=== PATIENT | male | born 1950 | race Caucasian/White ===

== ENCOUNTER → 2016-05-25 | Outpatient (CLI) | payer OTHER, MEDICARE ==
[~2016-05-25] MED LIST: FLNIN NAE; LISI-461 PO; MAXAIR INH; MULTTAB58 PO; OPTIRAY 320 IV PRN; SNG10 PO; SYN100 PO; [UNRECOGNIZED DRUG - OTHER] PO
--- NOTE | 2016-05-25 12:30 | DIAGNOSTIC IMAGING REPORT ---
CT SCAN OF THE ABDOMEN AND PELVIS WITH IV CONTRAST CLINICAL HISTORY: Prostate cancer. COMPARISON STUDY: No priors. TECHNIQUE: Following the IV administration of 120 cc of Optiray 320, CT scan of the abdomen and pelvis is performed from the lung bases to the proximal femora. Images are reviewed in the axial, sagittal, and coronal planes. IV contrast was administered without complication. Automated dose control exposure was utilized. The examination is degraded by large body habitus, and streak artifact from the body wall abutting the CT gantry. CT DOSE: 1047.25 mGycm FINDINGS: Lung bases: The heart is normal in size and without pericardial effusion. The lung bases are clear. There is a small hiatal hernia. Liver: The contrast-enhanced liver is normal in size, contour, and attenuation. There is minimal central intrahepatic biliary ductal dilatation. The hepatic veins and portal veins are patent. Gallbladder: Surgically absent noting clips in the gallbladder fossa. Spleen: Normal in size and attenuation. Pancreas: Unremarkable. Adrenal glands: Unremarkable. Kidneys: The contrast enhanced kidneys demonstrate mild cortical atrophy and are without hydronephrosis. The kidneys enhance symmetrically. Abdominal vasculature: The abdominal aorta is normal in course and caliber noting mild atherosclerotic calcification. Bowel: The small bowel and colon are normal in course and caliber. There is mild sigmoid diverticulosis without CT evidence of acute diverticulitis. The appendix is well-visualized and normal. Peritoneum: There is no intraperitoneal free air or abdominal ascites. Lymphadenopathy: None. Pelvic viscera: The the prostate gland is diminutive and heterogeneous. Brachytherapy seeds are in place. The bladder and seminal vesicles are normal as visualized. Skeletal structures: The skeletal structures are osteopenic. There is mild to moderate lumbosacral spondylosis. Minimal retrolisthesis is seen at L4-L5 and L5-S1. No lytic or blastic lesions are seen. Degenerative sclerosis is noted in the sacroiliac joints and pubic symphysis. IMPRESSION: 1. There is no evidence of metastatic disease in the abdomen or pelvis. 2. Brachytherapy seeds are noted in the prostate gland. 3. Sigmoid diverticulosis without CT evidence of acute diverticulitis. 4. Additional changes as above. Electronically signed by: Dimas Peng M.D. 05/25/2016 12:29 PM Dictated Date/Time: 05/25/2016 12:24 PM
--- NOTE | 2016-05-25 15:52 | DIAGNOSTIC IMAGING REPORT ---
BONE SCAN WHOLE BODY CLINICAL HISTORY: Prostate carcinoma COMPARISON STUDY: CT scan dated 05/25/2016 FINDINGS: The patient was injected with 25.4 mCi of technetium 99m MDP. Three-hour delayed whole body images were acquired. There are multifocal areas of increased activity within both feet and both ankles right greater than left. There is also areas of increased uptake within the left knee and right shoulder. The distribution favors a degenerative/arthritic etiology. There is a focus of increased activity right cervical spine posteriorly, also likely degenerative. There are no foci of increased activity viewed as suspicious for skeletal metastasis. IMPRESSION: Multifocal areas of increased uptake in a distribution suggesting degenerative/arthritic change. There are no foci of increased activity viewed as suspicious for skeletal metastasis Electronically signed by: Russell Joe M.D. 05/25/2016 3:50 PM Dictated Date/Time: 05/25/2016 3:49 PM
== END | disposition home or self-care (01) ==
LOC: C.CTS 11:38
PROVIDERS: ATTEND Urology
DX: C61 Malignant neoplasm of prostate (principal)

== ENCOUNTER → 2017-08-05 | Outpatient (CLI) | payer OTHER, MEDICARE ==
--- NOTE | 2017-08-05 12:17 | DIAGNOSTIC IMAGING REPORT ---
ABD/PELVIS IV AND ORAL CONT CT DOSE: 1499.01 mGy.cm HISTORY: Prostate carcinoma PROSTATE CA TECHNIQUE: Multiaxial CT images of the abdomen and pelvis were performed following the use of intravenous and oral contrast. A dose lowering technique was utilized adhering to the principles of ALARA. COMPARISON STUDY: 05/25/2016 FINDINGS: The lung bases are clear. The liver, spleen, gallbladder, pancreas, kidneys, and adrenal glands are within normal limits. No bowel wall thickening or obstruction. The pelvic organs are unremarkable. No suspicious lytic or blastic osseous lesions. IMPRESSION: No significant abnormality identified within the abdomen or pelvis. Stable postoperative change. No evidence for metastatic disease. The above report was generated using voice recognition software. It may contain grammatical, syntax or spelling errors. Electronically signed by: Hudson Bowers M.D. 08/05/2017 12:16 PM Dictated Date/Time: 08/05/2017 12:14 PM
--- NOTE | 2017-08-05 16:00 | DIAGNOSTIC IMAGING REPORT ---
BONE SCAN WHOLE BODY HISTORY: Prostate carcinoma PROSTATE CA RADIOTRACER: 25.4 mCi Tc-99m MDP STUDY/IMAGES: Planar anterior and posterior whole body imaging was performed 3 hours following the intravenous administration of radiotracer. COMPARISON: 05/25/2016 FINDINGS: Unremarkable bilateral renal activity is present. There are findings of considerable degenerative change of the ankles and feet which are similar compared to the prior study. There are findings of mild degenerative change of the knee compartments bilaterally. There is no evidence for a pattern of metastatic bone disease. There are no abnormal soft tissue activity characteristics. IMPRESSION: 1. Degenerative activity primarily of the feet and ankles. 2. This study is considered negative for metastatic bone disease by bone scan criteria. The above report was generated using voice recognition software. It may contain grammatical, syntax or spelling errors. Electronically signed by: Hudson Bowers M.D. 08/05/2017 3:59 PM Dictated Date/Time: 08/05/2017 3:57 PM
== END | disposition home or self-care (01) ==
LOC: C.CTS 11:36
PROVIDERS: ATTEND Urology
DX: C61 Malignant neoplasm of prostate (principal); M19.071 Primary osteoarthritis, right ankle and foot; M19.072 Primary osteoarthritis, left ankle and foot

== ENCOUNTER 2018-09-21 05:44 | Inpatient (IN) ==
--- NOTE | 2018-09-07 11:08 | Anesthesiology Consultation ---
Date of Service September 07, 2018 Assessment & Plan (1) Encounter for pre-operative examination: Chart Review Chart Review: Acceptable Risk for Surgery and Patient NOT seen in Pre Admission Testing Consults Requested none History Surgery Operation Date: 09/21/18 14:50 Proposed Procedures p Left Total Knee Arthroplasty - Dayday Pinedo MD Height/Weight Height: 5 ft 10.5 in Weight: 122.016 kg Allergies Allergy/AdvReac Type Severity Reaction Status Date / Time Penicillins Allergy Intermediate hives Verified 08/25/18 09:39 Sulfa (Sulfonamide Allergy Intermediate hives Verified 08/25/18 09:39 Antibiotics) Medications Home Medications Medication Instructions Recorded Confirmed Last Taken aspirin [Aspir-81] 81 mg PO HS 07/01/18 08/25/18 Unknown budesonide 1 spray INTRANASAL QPM 07/01/18 08/25/18 Unknown cholecalciferol (vitamin D3) 1,000 unit PO QAM 07/01/18 08/25/18 Unknown [Vitamin D3] doxazosin 8 mg PO HS 07/01/18 08/25/18 Unknown fluticasone propionate [Flonase 2 spray INTRANASAL HS 07/01/18 08/25/18 Unknown Allergy Relief] levocetirizine [Xyzal] 2.5 mg PO HS 07/01/18 08/25/18 Unknown levothyroxine 100 mcg PO QAM 07/01/18 08/25/18 Unknown lisinopril 20 mg PO QAM 07/01/18 08/25/18 Unknown montelukast 10 mg PO QAM 07/01/18 08/25/18 Unknown oxybutynin chloride 5 mg PO BID 07/01/18 08/25/18 Unknown albuterol sulfate 1 puff INHALATION Q6H PRN 07/07/18 08/25/18 Unknown budesonide-formoterol [Symbicort] 1 puff INHALATION BID 07/07/18 08/25/18 Unknown Cholesterol Med 0.5 tab PO HS 08/25/18 08/25/18 Unknown Past Medical History Medical History Arthritis Asthma Symbicort BID, albuterol < once per day History of prostate cancer DX'D 7-8 YRS AGO s/p brachytherapy Hyperlipidemia Hypertension Obesity Sleep apnea CPAP HS Exercise / Class Metabolic Activity II 4-5 Yardwork/Stairs/Walk up hill (Denies CP or SOB with 1 FOS) Past Family History Family History Daughter No problems noted. Brother Family history of diabetes mellitus Sister Family history of diabetes mellitus Past Surgical History Surgical History History of brachytherapy 2011 History of cholecystectomy History of colonoscopy 3 YRS AGO History of sinus surgery AND NASAL POLYPS History of tonsillectomy Past Anesthesia History No Family Hx of Anesthesia Complications Volume brachytherapy 2011 [facility]: DL x 2, ETT 8.0 with 2 Bautista. Atraumatic. No issues noted per record. PT STATES HE HAD A LOT OF TROUBLE WAKING AFTER SINUS SURGERY IN , NO ISSUES WITH SUBSEQUENT SURGERIES. THIS WAS MOST REMOTE SURGERY, HAS SINCE HAD CHOLECYSTECTOMY AND BRACHYTHERAPY WITH NO ISSUES. Social History Smoking Status: Never smoker Do You Dip or Chew Tobacco: No Hx Alcohol Use: Yes Alcohol type: beer alcohol intake frequency: a few times a month Hx Substance Use: No substance use type: does not use Testing Laboratory Results 09/05/18 WBC: 6.63 H/H: 13.7/38.1 PLATELETS: 149 SODIUM: 140 POTASSIUM: 3.9 CHLORIDE: 108 CO2: 26 BUN: 16 CREATININE: 0.99 GLUCOSE: 89 PT: 10.9 PTT: 29.1 INR: 1.1 Electrocardiogram Date: 07/07/18 Findings: + NSR @ (77 with sinus arrhythmia) NS ST abnormality. Compared to EKG of 03/20/11 no significant change was found. Chest X-Ray Date: 07/07/18 Findings: + NAD
--- NOTE | 2018-09-20 16:07 | History and Physical Report ---
DATE OF ADMISSION: 09/21/2018 CHIEF COMPLAINT: Chronic left knee pain. HISTORY OF PRESENT ILLNESS: This is a 68-year-old male patient of Dr. Pinedo'shahana complaining of chronic left knee pain, longstanding, now progressively getting worse. The patient has failed conservative treatment including intraarticular injections, anti-inflammatories and home exercise program directed by his physician. The patient has increased pain with weightbearing activities and his pain does interfere with his activities of daily living. The patient has been diagnosed with end-stage osteoarthritis per clinical and radiographic exams and wishes to proceed with a left total knee arthroplasty. PAST MEDICAL HISTORY: Significant for heart murmur, asthma, chronic cough, sleep apnea with the use of CPAP, osteoarthritis, acid reflux, obesity, prostate cancer. SOCIAL HISTORY: Nonsmoker, nondrinker. PAST SURGICAL HISTORY: Sinus surgery, cholecystectomy and seed implants for his prostate cancer. FAMILY HISTORY: Noncontributory. REVIEW OF SYSTEMS: Chronic left knee pain, otherwise denies any shortness of breath, chest pain, nausea, vomiting or other joint complaints. MEDICATIONS: 1. Budesonide 0.6 mg twice daily, nasal wash. 2. Montelukast 10 mg daily. 3. Vitamin D3 daily. 4. Oxybutynin chloride 5 mg twice daily. 5. Levothyroxine 100 mcg daily. 6. Lisinopril 10 mg daily. 7. Symbicort 160 mcg 1 spray in the morning, 1 spray at night. 8. Fluticasone proprionate nasal spray 2 sprays in each nostril at night. 9. Doxazosin 4 mg daily. 10. Xyzal 5 mg 1/2 tablet at bedtime. 11. Aspirin 81 mg daily. 12. Albuterol sulfate inhaler as needed. ALLERGIES: PENICILLIN - HIVES; SULFA - HIVES. PHYSICAL EXAMINATION: GENERAL: Well-developed, well-nourished 68-year-old male in no acute distress. He is alert and oriented x3 and pleasant. HEENT: Normocephalic, atraumatic. Extraocular motions are intact. Pupils are equal and reactive to light. HEART: Regular rate and rhythm, no murmurs appreciated. LUNGS: Clear. ABDOMEN: Soft and nontender. Bowel sounds present. EXTREMITIES: Left knee range of motion limited to 0-100 degrees with a varus deformity. The patient has crepitation with passive range of motion with a mild effusion. Ligaments are stable. He has medial joint line tenderness. He has 5/5 strength with pain. NEUROLOGIC: Neurovascularly he is intact in his left lower extremity. DIAGNOSES: Left knee end-stage osteoarthritis, history of a heart murmur, hypertension, asthma, sleep apnea with the use of CPAP, osteoarthritis, acid reflux, obesity, history of prostate cancer. PLAN: The patient was advised of his diagnosis. Indications, risks, benefits, postop course have all been reviewed. The patient wished to proceed with a left total knee arthroplasty. Necessary consent forms, preoperative testing clearances will be obtained.
[2018-09-21] MEDS ORDERED: GABAPENTIN 300 MG PO SCH (06:00)
[2018-09-21] MEDS ORDERED: ROPIVACAINE 0.5% HCL/PF 150 MG, BUPIVACAINE 0.5% MPF 30 ML, EPINEPHrine 30MG/30ML (OR U... INFIL SCH (06:00)
[2018-09-21] MEDS ORDERED: METOCLOPRAMIDE HCL 10 MG TABLET PO SCH (06:00)
[2018-09-21] MEDS ORDERED: VANCOMYCIN HCL 1,750 MG in SODIUM CHLORIDE 0.9% 500 ML IV SCH ×2 (06:00→18:00)
[2018-09-21] MEDS ORDERED: VANCOMYCIN HCL 1,000 MG/270 ML BAG IV SCH (06:00)
[2018-09-21] MEDS ORDERED: dexAMETHasone 4 MG TAB PO SCH (06:00)
[2018-09-21] MEDS ORDERED: ACETAMINOPHEN 500 MG TAB PO SCH (06:00)
[2018-09-21] MEDS ORDERED: FAMOTIDINE 20 MG TAB PO SCH (06:00)
[2018-09-21] MEDS ORDERED: TRANEXAMIC ACID 1,000 MG **IV Pre-op IV SCH (06:00)
[2018-09-21] MEDS ORDERED: TRANEXAMIC ACID 1,000 MG **IV Intra-op IV SCH (06:30)
[2018-09-21] MEDS ORDERED: BUPIVACAINE 0.5 % 5 MG/1 ML PF 10ML VIAL ONE (06:32)
[2018-09-21] MEDS ORDERED: ROPIVACAINE 0.5% 5 MG/ML 30 ML VIAL ONE (06:32)
[2018-09-21] MEDS: LR 500ML BOLUS, THEN 15ML/HR IV SCH ×2 (06:37→08:09)
[2018-09-21] MEDS ORDERED: DEXAMETHASONE SOD INJ 4 MG/ML VIAL ONE (06:43)
[2018-09-21] MEDS ORDERED: LIDOCAINE HCL 2% 2 ML VIAL/AMP(20MG/ML) INFIL ONE (06:43)
[2018-09-21] MEDS ORDERED: MIDAZOLAM HCL 1 MG/ML 2ML VIAL ONE (06:43)
[2018-09-21] MEDS ORDERED: GLYCOPYRROLATE 0.2 MG/ML VIAL ONE (06:43)
[2018-09-21] MEDS ORDERED: PROPOFOL IV EMULSION 10 MG/ML 20 ML VIAL IV ONE ×3 (06:43→09:52)
[2018-09-21] MEDS ORDERED: ONDANSETRON INJ 2 MG/ML 2 ML VIAL ONE (06:43)
[2018-09-21] MEDS ORDERED: KETAMINE HCL INJ 50 MG/ML 10 ML VIAL ONE (06:44)
[2018-09-21] MEDS ORDERED: fentaNYL citrate 100 MCG/2 ML VIAL ONE (06:45)
--- NOTE | 2018-09-21 06:53 | History & Physical Bridge Note ---
Date of Service September 21, 2018 History & Physical Bridge Note I have examined the patient, reviewed the History & Physical and in the interval since the performance of the History & Physical I have noted the following changes of clinical significance: no changes noted
[2018-09-21] MEDS ORDERED: ePHEDrine sulfate 50 MG/ML AMP IV PRN (07:19)
[2018-09-21] MEDS ORDERED: fentaNYL citrate 100 MCG/2 ML VIAL IV PRN (07:19)
[2018-09-21] MEDS ORDERED: ATROPINE SULFATE 0.1 MG/ML 10ML SYR IV PRN (07:19)
[2018-09-21] MEDS ORDERED: ONDANSETRON INJ 2 MG/ML 2 ML VIAL IV PRN ×2 (07:19→11:24)
[2018-09-21] MEDS ORDERED: HYDROmorphone INJ 1 MG/ML SYRINGE IV PRN (07:19)
[2018-09-21] MEDS ORDERED: ORTHO JOINT ANESTHETIC ONE (07:22)
[2018-09-21] MEDS ORDERED: BACITRACIN INJ 50,000 UNIT VIAL ONE (07:22)
[2018-09-21] MEDS ORDERED: LABETALOL HCL IV 5 MG/ML 20ML IV ONE (09:35)
--- NOTE | 2018-09-21 10:00 | Post Operative Brief Note ---
Immediate Post Op Note v1 Date of Surgery September 21, 2018 Pre & Post Diagnosis Operation Date: 09/21/18 08:40 Pre-Op Diagnosis: Unilateral Primary Osteoarthritis, Left Knee Post-Op Diagnosis: Unilateral Primary Osteoarthritis, Left Knee Procedure Operation Date: 09/21/18 08:40 Actual Procedures p Left Total Knee Arthroplasty(Left) - Dayday Pinedo MD Surgeon Dayday Pinedo MD Manager Research Development Albert GARCIA Estimated Blood Loss 5 Findings Consistent with Post-Op Diagnosis Specimens Bone cuts Drains Hemovac Drain Anesthesia Type MAC Spinal Regional Complications none Disposition Accompanied Patient To Recovery: No Disposition: Recovery Room Overlapping Procedure I was present for: the critical portions of procedure.
[2018-09-21] MEDS ORDERED: POVIDONE-IODINE 10% OINT 30 GM TUBE EXT ONE (10:06)
--- NOTE | 2018-09-21 10:59 | XRay Report ---
XR knee LT 2V routine CLINICAL HISTORY: Surgical Post Op COMPARISON: None. DISCUSSION: There are postsurgical changes of total left knee arthroplasty and patellar resurfacing. There are overlying skin bijan and surgical drains. The femoral tibial components appear well seate d. There is air present within the soft tissues consistent with recent surgery. IMPRESSION: Postsurgical changes of a total left knee arthroplasty. Electronically signed by: Russell Joe M.D. 09/21/2018 10:58 AM
--- NOTE | 2018-09-21 11:01 | Anesthesiology Progress Note ---
Date of Service September 21, 2018 Anesthesia Post Procedure Vital Signs Vital Signs: Temp Pulse Pulse Resp BP BP Pulse Ox 09/21/18 10:50 82 20 147/77 H 93 09/21/18 10:40 86 15 144/86 H 94 09/21/18 10:32 36.1 C L 93 H 18 142/79 H 97 09/21/18 06:19 36.6 C 80 20 170/95 H 95 Pain Intensity Left Knee: Pain Intensity: 0 Transfer of Care Handoff Completed per policy Notes Mental Status: alert / awake / arousable Patient Amnestic to Procedure: Yes Nausea / Vomiting: adequately controlled Pain: adequately controlled Airway Patency, RR, SpO2: stable & adequate BP & HR: stable & adequate Hydration State: stable & adequate Neuraxial Anesthesia: was administered and sensory block is resolving Anesthetic Complications: no major complications apparent and Pt Satisfied with anesthetic care
[2018-09-21] MEDS ORDERED: VANCOMYCIN CONSULT ACTIVE PRN (11:24)
[2018-09-21] MEDS ORDERED: ALBUTEROL HFA 8 GM INHALER INH PRN (11:24)
[2018-09-21] MEDS ORDERED: NALOXONE HCL 0.4 MG/1 ML VIAL/CARP IV PRN (11:24)
[2018-09-21] MEDS ORDERED: ALUMINUM/MAGNESIUM SUSP 30 ML UDC PO PRN (11:24)
[2018-09-21] MEDS ORDERED: HYDROmorphone INJ 0.5 MG/0.5 ML SYR IV PRN (11:24)
[2018-09-21] MEDS ORDERED: BISACODYL 10 MG SUPP PR PRN (11:24)
[2018-09-21] MEDS ORDERED: MAGNESIUM HYDROXIDE SUSP 30 ML UDC PO PRN (11:24)
--- NOTE | 2018-09-21 11:51 | Hospitalist Consultation ---
Date of Consultation September 21, 2018 Assessment & Plan (1) Osteoarthritis of left knee: - POD#[address] Pinedo - activity and wound care orders as per ortho - pain control with bowel regimen - PT/OT - monitor H/H for acute blood loss anemia and transfuse blood products PRN (2) Hypertension: -BP controlled, continue lisinopril (3) Hyperlipidemia: -Continue statin (4) Asthma: -Stable, no signs of acute exacerbation -Continue home inhalers (5) Sleep apnea: -CPAP as per home settings (6) DVT prophylaxis: -Aspirin 81 mg twice daily as per orthopedics Thank you for this consultation. We will follow the patient with you during their hospital stay. You can reach a member of the [facility] 19/10 via pager @ [phone]. Supervising Physician Co-Signing Physician Notes Patient is a 68-year-old male with history of asthma, ALEYDA, hypothyroidism, hypertension, history of prostate cancer and other problems was seen and examined postop after having left TKA by Dr. Pinedo. Patient is doing well postop. Pain at the surgical site is well controlled. Denies any chest pain, shortness of breath, dizziness, nausea, abdominal pain. Physical Exam: Vitals signs as noted above General Appearance:Obese, no apparent distress Head: normocephalic, Atraumatic Eyes: normal inspection, EOMI Neck: supple, Trachea midline Respiratory/Chest: Normal breath sounds, CTA, No accessory muscle use Cardiovascular: S1, S2, No murmur Abdomen/GI:Soft, Non tender, Bowel sounds present Extremities/Musculoskelatal:normal inspection, no edema, Left knee in surgical dressing, +drain Neurologic/Psych:AAOX3, grossly no focal neurological deficits Skin: normal color, warm S/P Left TKA: Monitor for postop anemia Activity, DVT prophylaxis and pain control as per primary team Asthma: No signs of exacerbation. I personally reviewed the record. Patient is interviewed and examined at bedside. Patient's care is coordinated with Lorena Cedeño CALL TAKER. Please refer to the documentation above for details of patient's presentation and for discussion of other issues. History of Present Illness Reason for Consultation: Post Op Medical Management Requesting Physician: Dr. Pinedo Attending Physician: Dr. Santoro History of Present Illness 68 year old male who is s/p left TKA today by Dr. Pinedo. Post operatively the patient is doing well. He reports his pain is well controlled. He has some residual numbness to the lower extremities. He denies chest pain and shortness of breath. No lightheadedness or dizziness. Denies abdominal pain and nausea. He has voided since surgery. Allergies Allergy/AdvReac Type Severity Reaction Status Date / Time Penicillins Allergy Intermediate hives Verified 09/21/18 06:09 Sulfa (Sulfonamide Allergy Intermediate hives Verified 09/21/18 06:09 Antibiotics) Home Medications Home Medications Medication Instructions Recorded Confirmed Type aspirin [Aspir-81] 81 mg PO HS 07/01/18 09/21/18 History budesonide 1 spray INTRANASAL QPM 07/01/18 09/21/18 History cholecalciferol (vitamin D3) 1,000 unit PO QAM 07/01/18 09/21/18 History [Vitamin D3] doxazosin 8 mg PO HS 07/01/18 09/21/18 History fluticasone propionate [Flonase 2 spray INTRANASAL HS 07/01/18 09/21/18 History Allergy Relief] levocetirizine [Xyzal] 2.5 mg PO HS 07/01/18 09/21/18 History levothyroxine 100 mcg PO QAM 07/01/18 09/21/18 History lisinopril 20 mg PO QAM 07/01/18 09/21/18 History montelukast 10 mg PO QAM 07/01/18 09/21/18 History oxybutynin chloride 5 mg PO BID 07/01/18 09/21/18 History albuterol sulfate 1 puff INHALATION Q6H PRN 07/07/18 09/21/18 History budesonide-formoterol [Symbicort] 1 puff INHALATION BID 07/07/18 09/21/18 History rosuvastatin 10 mg PO DAILY 09/21/18 09/21/18 History Patient History Medical History Hypertension (Chronic) Asthma (Chronic) Symbicort BID, albuterol < once per day Sleep apnea (Chronic) CPAP HS History of prostate cancer (Chronic) DX'D 7-8 YRS AGO s/p brachytherapy Obesity (Chronic) Hyperlipidemia (Chronic) Arthritis (Chronic) Encounter for pre-operative examination (Chronic) Surgical History History of vasectomy (Chronic) History of brachytherapy (Chronic) 2012 History of cholecystectomy (Chronic) History of sinus surgery (Chronic) AND NASAL POLYPS History of tonsillectomy (Chronic) Family History Daughter No problems noted. Brother Family history of diabetes mellitus Sister Family history of diabetes mellitus Social History Preferred Language: [place] Communication Ability: Effective Oncology Patient Navigator Required: No Beliefs That Will Affect Care: None Current Living Situation: Spouse Other Information That Helps Us Care for You: No Feels Safe at Home: Yes Safety Concerns: Feels Safe At This Time Smoking Status: Never smoker Do You Dip or Chew Tobacco: No Second Hand Exposure: No Hx Alcohol Use: Yes Alcohol type: beer Hx Substance Use: No Review of Systems Review of Systems: ROS per HPI, all other systems reviewed and negative Physical Exam Physical Exam: Please refer to Dr. Santoro's addendum for physical exam Results & Data Vital Signs (Past 12 Hours) Vital Signs Temp Pulse Pulse Resp BP BP Pulse Ox 09/21/18 11:15 36.5 C 75 18 143/77 H 93 09/21/18 11:00 36.8 C 79 21 142/77 H 92 09/21/18 10:50 82 20 147/77 H 93 09/21/18 10:40 86 15 144/86 H 94 09/21/18 10:32 36.1 C L 93 H 18 142/79 H 97 09/21/18 06:19 36.6 C 80 20 170/95 H 95
[2018-09-21] MEDS: SODIUM CHLORIDE 0.9% 1000ML 1,000 ML IV SCH ×2 (12:24→22:04)
[2018-09-21] MEDS: ACETAMINOPHEN 500 MG TAB PO SCH ×2 (13:52→21:17)
[2018-09-21] MEDS: KETOROLAC TROMETHAMINE 15 MG/ML VIAL IV SCH ×2 (13:52→21:14)
--- NOTE | 2018-09-21 20:09 | Operative Report ---
Post Operative Report Pre & Post Diagnosis Operation Date: 09/21/18 08:40 Pre-Op Diagnosis: Unilateral Primary Osteoarthritis, Left Knee Post-Op Diagnosis: Unilateral Primary Osteoarthritis, Left Knee Procedure Operation Date: 09/21/18 08:40 Actual Procedures p Left Total Knee Arthroplasty(Left) - Dayday Pinedo MD Surgeon Dayday Pinedo MD Nursing Home Assistant Administrator Albert GARCIA Estimated Blood Loss 5 Findings Consistent with Post-Op Diagnosis Specimens Bone cuts Drains 2 Hemovac Anesthesia Type MAC Spinal Regional Complications none Disposition Accompanied Patient To Recovery: No Disposition: Recovery Room Indications 60-year-old male with chronic left knee pain progressive osteoarthritis failed conservative management. Radiographs demonstrate that he has patellofemoral medial compartment osteoarthritis of varus knee [id number] medial compartment. Description of Procedure Patient taken to the operating room the size under spinal MAC regional anesthesia. Patient was placed supine on the operating table. A pneumatic tourniquet was placed about the left upper thigh. The left lower extremity was prepped and draped in sterile fashion. Knee exam demonstrated -15 degree flexion contracture with flexion 120 degrees no instability. The leg was elevated exsanguinated with an Esmarch bandage and pneumatic tourniquet was raised to 350 millimeters of mercury. Skin incised sharply in longitudinal fashion. Subcutaneous flaps elevated. Incision was made through the medial retinaculum extending up in the mid third of the quadriceps tendon and down to the medial tibial tubercle. Intra-articular findings demonstrated tricompartmental OA with [id number] medial compartment and grade 3 close to grade 4 patella femoral OA. The [employer] triathlon total knee arthroplasty system was used. To expose the knee the infrapatellar fat pad was resected. The meniscal remnants and cruciate ligaments were resected. The anterior fat pad over the femur in the area of the anterior flange of the femoral component was resected. Lateral synovial bands release. The femur was exposed. An intramedullary drill hole was made into the canal. A guide ivet was placed. Distal femoral cutting guide was adjusted to resect a 5 degree valgus cut with 10 millimeters distal femur resected. The knee was extended and a subperiosteal peel lateral release was performed around the patella. Patella width was measured and width was reproduced using a freehand cut technique and a 39 x 11 patella component. The 3 drill holes were made and the excess lateral facet was beveled off to prevent any impingement. Attention was taken back to the femur which was exposed with retractors and the femoral sizing guide was pinned in position. The drill holes were placed in 3 of external rotation to match epicondylar axis. Femur sized for a 7 component. The 4-in-1 cutting block was placed and then the anterior posterior and chamfer cuts are made. The tibia was then subluxed. The external tibial cutting guide was just to make a perpendicular cut to the long axis of the tibia below the most deficient bone loss side. A lamina claim agent was used and the flexion extension gaps were balanced. All posterior osteophytes removed. All meniscal remnants were resected. The tibia exposed and the trial tibial component size 6 was residential mortgage manager ally rotated in line with the tibial tubercle and pinned in position. The punch for stem was used. The notch cutting device was centered appropriately and the femoral notch cut was made. The femoral trial was inserted. Trial tibial inserts were placed and size 13 gave balanced ligaments through flexion and extension. Patella tracking was assessed. The patella tracked with some slight liftoff and tilt so a lateral release was performed keeping the synovium intact and the patella tracked centrally. The trial components were then removed and the orthomix anesthetic cocktail was injected per protocol. The knee was then copiously irrigated with pulsatile lavage antibiotic solution. Final components were then cemented with Simplex cement. Final components were [place] triathlon S 39 x 11 mm symmetrical patella X3 poly-, triathlon X3 poly-size 613 mm posterior stabilized polyethylene tibial bearing. Triathlon size 6 primary tibial baseplate, size 7 left posterior stabilized femoral component with femoral distal peg fixation. While the cement cured the Betadine soak was used per protocol. After cement cured further pulsatile lavage irrigation performed and 2 Hemovac drains were brought out laterally. The quadriceps tendon and medial retinaculum were closed with figure of 8 #1 Vicryl sutures. The knee was taken through full range of motion and the repair was secure. The subcutaneous tissues were closed with 2-0 Vicryl sutures. Skin was closed with bijan. Sterile dressings were applied. Patient procedure well. Albert GARCIA was my physician hospital aides and assistants teacher who assisted in patient positioning prepping and draping,leg positioning ,soft tissue retraction and instrument management and participated in the closing and [facility] The patient tolerated the procedure well. I attest to the content of the Intraoperative Record and any orders documented therein. Any exceptions are noted below.
[2018-09-21] MEDS ORDERED: BUDESONIDE AQ (RHINOCORT AQ) NASAL SPRAY 32 MCG SCH (21:00)
[2018-09-21] MEDS: OXYBUTYNIN CHLORIDE 5 MG TAB PO SCH (21:16)
[2018-09-21] MEDS: DOXAZosin MESYLATE 4 MG TAB PO SCH (21:16)
[2018-09-21] MEDS: DOCUSATE SODIUM 100 MG CAP PO SCH (21:16)
[2018-09-21] MEDS: ASPIRIN 81 MG ECTAB PO SCH (21:16)
[2018-09-21] MEDS: BUDESONIDE/FORMOTEROL FUMARATE 80/4.5 60 PUFFS/INHALER INH SCH (21:17)
[2018-09-21] MEDS: FLUTICASONE PROPIONATE NA SPR 16 GM BTL SCH (21:17)
[2018-09-21] MEDS: SENNA 8.6 MG TAB PO SCH (21:18)
[2018-09-21] MEDS ORDERED: Nursing to Pharmacy Communication ONE (21:27)
[2018-09-22] MEDS: KETOROLAC TROMETHAMINE 15 MG/ML VIAL IV SCH ×4 (01:38→20:23)
[2018-09-22] MEDS: ACETAMINOPHEN 500 MG TAB PO SCH ×3 (05:18→21:47)
[2018-09-22] MEDS: LEVOTHYROXINE SODIUM 100 MCG TABLET PO SCH (05:18)
[2018-09-22 06:22] LABS: Hematocrit (blood only) 35.5 % (42-52); Hemoglobin 12.7 g/dL (14.0-18.0); Mean Corpuscular Hgb Conc 35.8 g/dL (32-36); Mean Platelet Volume 9.5 fL (7.4-10.4); Platelet Count 169 K/uL (130-400); RDW Coefficient of Variation 11.9 % (11.5-14.5); RDW Standard Deviation 42.3 fL (36.4-46.3); Red Blood Count 3.66 M/uL (4.7-6.1); White Blood Count 14.89 K/uL (4.8-10.8)
[2018-09-22 06:55] LABS: BUN Creatinine Ratio 20.6 (10-20); Calcium 8.5 mg/dl (8.5-10.1); Creatinine Clr Calc Pharmacy 83.4 ml/min; Est GFR (African American) 77.8; Est GFR (Non-African American) 67.1; Potassium 4.2 mmol/L (3.5-5.1)
--- NOTE | 2018-09-22 08:56 | Hospitalist Progress Note ---
Date of Service September 22, 2018 Assessment & Plan (1) Osteoarthritis of left knee: - POD#[address] Pinedo - Activity and wound care orders as per ortho - Pain control with bowel regimen, PT/OT -Leukocytosis of 14.89k in setting of post operative stress, pre-op decadron 8mg. No fever, chills or evidence of infection. Expect downtrending -Monitor H/H for acute blood loss anemia - hgb of 12.7 today from 13.7 (2) Hypertension: -BP controlled, continue lisinopril (3) Hyperlipidemia: -Continue statin (4) Asthma: -Stable, no signs of acute exacerbation -Continue home inhalers (5) Sleep apnea: -CPAP as per home settings (6) DVT prophylaxis: -Aspirin 81 mg twice daily as per orthopedics Patient seen in collaboration with Dr. Santoro. Please see addendum. Thank you for this consultation. We will follow the patient with you during their hospital stay. You can reach a member of the [facility] Hospitalist Team 19/10 via pager @ [phone]. Supervising Physician Co-Signing Physician Notes Patient is seen and examined at bedside. Doing well this morning. Knee pain at surgical site is well controlled. Had bowel movement today. Offers no complaints. Physical Exam: Vitals signs as noted above General Appearance:Obese, no apparent distress Head: normocephalic, Atraumatic Eyes: normal inspection, EOMI Neck: supple, Trachea midline Respiratory/Chest: Normal breath sounds, CTA, No accessory muscle use Cardiovascular: S1, S2, No murmur Abdomen/GI:Soft, Non tender, Bowel sounds present Extremities/Musculoskelatal:normal inspection, no edema, Left knee in surgical d ressing, +drain Neurologic/Psych:AAOX3, grossly no focal neurological deficits Skin: normal color, warm S/P Left TKA: Monitor for postop anemia Activity, DVT prophylaxis and pain control as per primary team Pain is controlled Continue PT/OT Asthma: No signs of exacerbation. I personally reviewed the record. Patient is interviewed and examined at bedside. Patient's care is coordinated with Leatha Velázquez PA-C. Please refer to the documentation above for details of patient's presentation and for discussion of other issues. Subjective Patient seen and examined in bedside chair. Feeling well today. Some surgical site pain but able to ambulate with walker. No fever, chills, lightheadedness, headache, chest pain, palpitation or shortness of breath. Tolerating meals without any nausea or vomiting. Urinating well, without dysuria or retention. Had first normal bowel movement this morning. Review of Systems Review of Systems: At least ten systems reviewed and negative except as noted in the HPI. Physical Exam Physical Exam: General Appearance: WD/WN, no apparent distress, obese, resting comfortably in bedside chair Head: normocephalic, atraumatic Eyes: normal inspection, PERRL, EOMI ENT: hearing grossly normal, pharynx normal (moist mucous membranes) Neck: supple, no JVD, no adenopathy Respiratory/Chest: lungs clear to auscultation. No wheezes, rales or rhonci. No respiratory distress or accessory muscle use Cardiovascular: regular rate, rhythm, no murmur, normal peripheral pulses Abdomen/GI: normal bowel sounds, soft, non-tender to palpation Extremities/Musculoskelatal: L knee with surgical dressing, clean, dry, intact. Drain visualized. No calf tenderness, normal capillary refill, no pedal edema Neurologic/Psych: alert, normal mood/affect, oriented x 3 Skin: normal color, warm/dry Results & Data Vital Signs (Past 12 Hours) Vital Signs Temp Pulse Resp BP Pulse Ox 09/22/18 03:03 36.6 C 66 18 112/62 97 09/21/18 23:00 36.6 C 58 L 18 129/75 93 Laboratory Results Short CBC 09/22/18 Range/Units 06:03 WBC 14.89 H (4.8-10.8) K/uL Hgb 12.7 L (14.0-18.0) g/dL Hct 35.5 L (42-52) % Plt Count 169 (130-400) K/uL BMP 09/22/18 06:03 Sodium 137 Potassium 4.2 Chloride 106 Carbon Dioxide 22 BUN 23 H Creatinine 1.12 Glucose 119 H Calcium 8.5
[2018-09-22] MEDS ORDERED: ROSUVASTATIN CALCIUM 10 MG TAB PO SCH ×2 (09:00→21:00)
--- NOTE | 2018-09-22 09:11 | Orthopedic Progress Note ---
Date of Service September 22, 2018 Assessment & Plan (1) Osteoarthritis of left knee: POD #1, Left TKA PT/ OT DVT proph- ASA D/C planning- Home w OPPT per medicine. Subjective POD #1, doing well, denies sob, cp, n/v. Pain controlled well. Physical Exam Physical Exam: Left knee dressings c/d/i, no drainage. Toes and ankle mobile. No calf tenderness. A&Ox3. Results & Data Vital Signs (Past 12 Hours) Vital Signs Temp Pulse Resp BP Pulse Ox 09/22/18 03:03 36.6 C 66 18 112/62 97 09/21/18 23:00 36.6 C 58 L 18 129/75 93
[2018-09-22] MEDS: BUDESONIDE/FORMOTEROL FUMARATE 80/4.5 60 PUFFS/INHALER INH SCH ×2 (09:14→20:25)
[2018-09-22] MEDS: MULTIVITAMIN TAB PO SCH (09:15)
[2018-09-22] MEDS: LISINOPRIL 20 MG TAB PO SCH (09:15)
[2018-09-22] MEDS: CHOLECALCIFEROL 1,000 UNITS TAB PO SCH (09:15)
[2018-09-22] MEDS: ASPIRIN 81 MG ECTAB PO SCH ×2 (09:15→20:24)
[2018-09-22] MEDS: MONTELUKAST SODIUM 10 MG TABLET PO SCH (09:15)
[2018-09-22] MEDS: OXYBUTYNIN CHLORIDE 5 MG TAB PO SCH ×2 (09:16→20:24)
[2018-09-22] MEDS: DOCUSATE SODIUM 100 MG CAP PO SCH ×2 (09:16→20:23)
[2018-09-22] MEDS: DOXAZosin MESYLATE 4 MG TAB PO SCH (20:23)
[2018-09-22] MEDS: SENNA 8.6 MG TAB PO SCH (20:24)
[2018-09-22] MEDS: FLUTICASONE PROPIONATE NA SPR 16 GM BTL SCH (20:24)
[2018-09-23] MEDS: KETOROLAC TROMETHAMINE 15 MG/ML VIAL IV SCH ×2 (02:04→08:16)
[2018-09-23] MEDS: ACETAMINOPHEN 500 MG TAB PO SCH (05:39)
[2018-09-23] MEDS: LEVOTHYROXINE SODIUM 100 MCG TABLET PO SCH (05:40)
[2018-09-23] MEDS: OXYCODONE HCL IR 5 MG TAB (IMMEDIATE RELEASE) PO PRN ×2 (05:58→10:03)
[2018-09-23 06:48] LABS: Hematocrit (blood only) 34.2 % (42-52); Mean Corpuscular Hgb Conc 35.1 g/dL (32-36); Mean Corpuscular Volume 97.2 fL (80-100); Mean Platelet Volume 9.4 fL (7.4-10.4); Platelet Count 132 K/uL (130-400); RDW Coefficient of Variation 12.1 % (11.5-14.5); RDW Standard Deviation 43.1 fL (36.4-46.3); Red Blood Count 3.52 M/uL (4.7-6.1); White Blood Count 12.43 K/uL (4.8-10.8)
[2018-09-23 07:17] LABS: BUN Creatinine Ratio 21.2 (10-20); Calcium 8.2 mg/dl (8.5-10.1); Creatinine Clr Calc Pharmacy 100.5 ml/min; Est GFR (African American) 97.4; Est GFR (Non-African American) 84.1; Potassium 3.8 mmol/L (3.5-5.1)
[2018-09-23] MEDS: LISINOPRIL 20 MG TAB PO SCH (08:16)
[2018-09-23] MEDS: MONTELUKAST SODIUM 10 MG TABLET PO SCH (08:16)
[2018-09-23] MEDS: DOCUSATE SODIUM 100 MG CAP PO SCH (08:16)
[2018-09-23] MEDS: ASPIRIN 81 MG ECTAB PO SCH (08:17)
[2018-09-23] MEDS: BUDESONIDE/FORMOTEROL FUMARATE 80/4.5 60 PUFFS/INHALER INH SCH (08:17)
--- NOTE | 2018-09-23 08:22 | Orthopedic Progress Note ---
Date of Service September 23, 2018 Assessment & Plan (1) Osteoarthritis of left knee: POD #2, Left TKA PT/ OT DVT proph- ASA D/C planning- Home w OPPT today per medicine. Subjective POD #2, doing well, denies sob, cp, n/v, pain controlled well, did well in PT. Physical Exam Physical Exam: Left knee silverlon c/d/i, no drainage, no erythema, toes and ankle mobile, A&Ox3. Results & Data Vital Signs (Past 12 Hours) Vital Signs Temp Pulse Pulse Resp BP Pulse Ox 09/23/18 07:26 37.0 C 75 73 16 146/75 H 95 09/23/18 06:31 37.0 C 75 16 146/75 H 95 09/22/18 23:33 36.4 C L 73 16 150/77 H 96 09/22/18 22:10 66 141/68 H
[2018-09-23] MEDS: MULTIVITAMIN TAB PO SCH (08:25)
[2018-09-23] MEDS: CHOLECALCIFEROL 1,000 UNITS TAB PO SCH (08:26)
[2018-09-23] MEDS: OXYBUTYNIN CHLORIDE 5 MG TAB PO SCH (08:26)
--- NOTE | 2018-10-04 15:11 | Discharge Summary ---
DISCHARGE DIAGNOSIS: Degenerative joint disease, left knee. SECONDARY DIAGNOSES: History of heart murmur, asthma, chronic cough, sleep apnea with use of CPAP, GERD, obesity, history of prostate carcinoma in the past. CONSULTS: JADIEL Garcia/Dr. Yvan M.D. COMPLICATIONS: None. PROCEDURES: Left total knee arthroplasty performed by Dr. Pinedo on 09/21/2018. BRIEF HISTORY: As dictated in the history and physical. HOSPITAL SUMMARY: The patient was admitted on the above-noted date and had the above-noted surgery performed, which he tolerated well. On the first postoperative day, patient was doing well and denied shortness of breath, chest pain, nausea, vomiting. Pain was controlled. Left knee dressings were clean, dry and intact. No drainage. Toes and ankles were mobile. No calf tenderness and vital signs were stable. The patient was afebrile. He was started on physical therapy and occupational therapy protocols, continued on DVT prophylaxis and pain management. Plans for outpatient PT upon discharge. By the second postoperative day, patient was remaining stable and doing well with no complaints. Pain was controlled, progressing in physical therapy well. Left knee Silverlon is intact. No drainage, no erythema. Toes and ankle were mobile. Vital signs were stable and the patient was afebrile. The patient was continued on PT protocol which he was progressing well, as noted remaining medically stable and it was felt that he could be discharged to home on 09/23/2018. For further review, please see chart. LABORATORY AND X-RAY DATA: As per chart. DISCHARGE INSTRUCTIONS: The patient was discharged to home in satisfactory condition on 09/23/2018. DIET: Regular. ACTIVITY: Weightbearing started in the left lower extremity. Follow TK instruction sheets and special care instructions as noted. Follow up with Dr. Pinedo in 2 weeks. The patient to call for appointment if one has not been made for you. DISCHARGE MEDICATIONS: Acetaminophen 1000 mg p.o. q. 8 hours, aspirin 81 mg p.o. b.i.d., oxycodone 5 mg p.o. q. 4 hours p.r.n., resume home meds as listed. Stop taking previous aspirin dosage.
== END 2018-09-23 10:33 | disposition home or self-care (01) | DRG 470 ==
LOC: ASU 05:44 → 3E 10:44